=== PATIENT | female | born 1960 | race Caucasian/White ===

== ENCOUNTER 2022-10-08 13:08 | Inpatient (IN) | payer OTHER ==
[~2022-10-08] VITALS: Ht 160 cm; Wt 87.5 kg
[~2022-10-08 13:08] MED LIST: ATOR10TA PO; CARV3.12 PO; CITA20TA19 PO; LORA1TAB PO; NITR0.4T51 SL; PANT-47 PO; RANI-648 PO
[2022-10-08 13:47] LABS: BASOPHILS % (AUTO) 0.4 % (0-1); EOSINOPHILS # (AUTO) 0.2 X10'3 (0-0.9); EOSINOPHILS % (AUTO) 2.1 % (0-6); HEMATOCRIT 41.1 % (35.0-45.0); HEMOGLOBIN 13.6 g/dl (12.0-16.0); LYMPHOCYTES % (AUTO) 25.8 % (21-51); MEAN CORPUSCULAR HEMOGLOBIN 30.3 PG (27.0-31.0); MEAN CORPUSCULAR HGB CONC 33.1 g/dL (33.0-36.5); MEAN CORPUSCULAR VOLUME 91.3 FL (78-98); MEAN PLATELET VOLUME 7.9 FL (7.4-10.4); MONOCYTES # (AUTO) 0.6 X10'3 (0-0.9); MONOCYTES % (AUTO) 7.8 % (2-12); NEUTROPHILS % (AUTO) 63.9 % (42-75); PLATELET COUNT 286 X10'3 (140-440); RED CELL DISTRIBUTION WIDTH 13.9 % (11.5-14.5); WHITE BLOOD COUNT 7.9 X10'3 (4.5-11.0)
[2022-10-08 14:05] LABS: ALANINE AMINOTRANSFERASE 33 U/L (12-78); ALBUMIN 4.1 G/DL (3.4-5.0); ALBUMIN/GLOBULIN RATIO 1.4 (1.1-1.5); ALKALINE PHOSPHATASE 81 IU/L (46-116); ANION GAP 13 (8-16); ASPARTATE AMINO TRANSFERASE 24 U/L (10-37); BILIRUBIN,TOTAL 0.2 MG/DL (0.1-1.0); BLOOD UREA NITROGEN 24 MG/DL (7-18); BUN/CREATININE RATIO 34.8 (10.0-20.0); CHLORIDE 104 MMOL/L (99-107); CREATININE 0.69 MG/DL (0.40-0.90); GLUCOSE 127 MG/DL (70-104); SODIUM 139 MMOL/L (135-145); TOTAL CARBON DIOXIDE 21.7 MMOL/L (24-32); TOTAL PROTEIN 7.1 G/DL (6.4-8.2); eGFR 86 ML/MIN
[2022-10-08 14:15] LABS: MAGNESIUM 1.7 MG/DL (1.5-2.4)
[2022-10-08] MEDS ORDERED: aspirin 81mg tab.chew PO ONE (15:20)
[2022-10-08] MEDS ORDERED: famotidine 20mg tablet PO ONE (15:35)
[2022-10-08] MEDS ORDERED: heparin 10,000 units/1 ML INJ IV ONE (15:40)
--- NOTE | 2022-10-08 15:59 | NUR ---
awating for PTT result to start the heparin
[2022-10-08] MEDS ORDERED: magnesium hydroxide 30ml (MOM) UD suspension PO PRN (16:05)
[2022-10-08] MEDS ORDERED: PERFLUTREN PROTEIN-A MICROSPHR (Optison) 0.22 MG/ML 3ML VIAL IV ONE (16:05)
[2022-10-08] MEDS ORDERED: mag hydrox/Alum hydrox/simeth 30ml oral suspension PO PRN (16:05)
[2022-10-08] MEDS ORDERED: magnesium Cl slow-release 64mg tablet PO PRN (16:05)
[2022-10-08] MEDS ORDERED: potassium Cl 20 mEq SR tablet PO PRN ×2 (16:05)
[2022-10-08] MEDS ORDERED: potassium Cl 40MEQ/1/2NS 520ml 520 ML IV PRN (16:05)
[2022-10-08] MEDS ORDERED: magnesium 4gm in 100ml NS 100 ML IV PRN (16:05)
[2022-10-08] MEDS ORDERED: ondansetron/PF 4mg/2ml inj IV PRN (16:05)
[2022-10-08] MEDS: normal saline 1000ml 1,000 ML IV SCH (16:05)
[2022-10-08] MEDS ORDERED: magnesium 2GM in 50ml NS 50 ML IV PRN (16:05)
[2022-10-08] MEDS ORDERED: morphine 2 MG/ML inj. syringe IV PRN ×2 (16:05)
[2022-10-08 16:26] LABS: APTT 27 SECONDS (22-32)
[2022-10-08] MEDS ORDERED: LORA-269 PO (16:32)
[2022-10-08] MEDS ORDERED: METF-1203 PO (16:32)
[2022-10-08] MEDS ORDERED: CITA20TA26 PO (16:32)
[2022-10-08] MEDS ORDERED: LOSA50TA64 PO (16:32)
[2022-10-08] MEDS ORDERED: PANT40TA54 PO (16:32)
[2022-10-08] MEDS ORDERED: EZET10TA48 PO (16:32)
[2022-10-08] MEDS ORDERED: ALBU6.7H14 IH (16:32)
[2022-10-08] MEDS: heparin 25,000 UNIT/250ml bag 250 ML IV PRN (17:05)
[2022-10-08] MEDS ORDERED: albuterol 2.5 MG/3 ML nebule NEB PRN (17:10)
[2022-10-08] MEDS: K and/or MAG REPLACEMENT MC SCH (19:59)
[2022-10-08] MEDS: pantoprazole 40mg Tablet.DR PO SCH (20:10)
[2022-10-08] MEDS: metoprolol tartrate 50mg tablet PO SCH (20:10)
[2022-10-08] MEDS: docusate sod 100mg capsule PO SCH (20:11)
[2022-10-08 23:00] VITALS: BP 143/61
[2022-10-09] VITALS (8 sets, daily range): BP systolic 101–149; BP diastolic 41–91
--- NOTE | 2022-10-09 04:15 | NUR ---
Spoke to Dr. Martinez on the phone regarding patient complaining of "4/10 chest pain/tightness that radiates to her back." EKG states "normal ECG, Sinus Rhythm." Vital signs stable at HR 75, BP 126/74, SpO2 95% and RR 18. New troponin ordered and sent. aware- okay to give prn morphine for pain and no new orders at this time.
[2022-10-09 04:24] LABS: BASOPHILS % (AUTO) 0.2 % (0-1); EOSINOPHILS # (AUTO) 0.2 X10'3 (0-0.9); HEMATOCRIT 37.6 % (35.0-45.0); HEMOGLOBIN 12.6 g/dl (12.0-16.0); LYMPHOCYTES # (AUTO) 3.1 X10'3 (1.1-4.8); LYMPHOCYTES % (AUTO) 35.3 % (21-51); MEAN CORPUSCULAR HEMOGLOBIN 30.5 PG (27.0-31.0); MEAN CORPUSCULAR HGB CONC 33.5 g/dL (33.0-36.5); MEAN PLATELET VOLUME 7.8 FL (7.4-10.4); MONOCYTES % (AUTO) 11.4 % (2-12); NEUTROPHILS # (AUTO) 4.5 X10'3 (1.8-7.7); NEUTROPHILS % (AUTO) 51.1 % (42-75); PLATELET COUNT 237 X10'3 (140-440); RED BLOOD COUNT 4.13 X10'6 (4.20-5.60); RED CELL DISTRIBUTION WIDTH 13.8 % (11.5-14.5); WHITE BLOOD COUNT 8.8 X10'3 (4.5-11.0)
[2022-10-09 04:45] LABS: ALBUMIN 3.4 G/DL (3.4-5.0); ANION GAP 8 (8-16); BLOOD UREA NITROGEN 18 MG/DL (7-18); BUN/CREATININE RATIO 25.4 (10.0-20.0); CALCIUM 8.5 MG/DL (8.5-10.1); CHLORIDE 108 MMOL/L (99-107); CHOL/HDL RATIO 4.3 (0.00-4.99); CHOLESTEROL 184 MG/DL (0-200); CREATININE 0.71 MG/DL (0.40-0.90); GLUCOSE 101 MG/DL (70-104); HDL CHOLESTEROL 43 MG/DL (35-60); LDL CHOLESTEROL 111 MG/DL (50-100); MAGNESIUM 1.8 MG/DL (1.5-2.4); POTASSIUM 3.7 MMOL/L (3.5-5.1); SODIUM 140 MMOL/L (135-145); TOTAL CARBON DIOXIDE 23.6 MMOL/L (24-32); TRIGLYCERIDES 156 MG/DL (20-135); eGFR 83 ML/MIN
--- NOTE | 2022-10-09 05:06 | NUR ---
DR. Martinez paged "[id number] Yasmin Mccloud- troponin came back at 1,833. Previous one was 226. Call Edith FOFANA @ ." Waiting for MD to call back.
--- NOTE | 2022-10-09 05:37 | NUR ---
Spoke to Dr. Martinez via telephone regarding troponin of 183. Previous troponin 226. MD aware and no new orders at this time.
[2022-10-09] MEDS: heparin 10,000 units/1 ML INJ IV PRN ×2 (07:12→21:19)
[2022-10-09] MEDS: normal saline 1000ml 1,000 ML IV SCH ×3 (07:16→22:05)
[2022-10-09] MEDS: docusate sod 100mg capsule PO SCH ×2 (07:54→19:18)
[2022-10-09] MEDS: aspirin 81mg, enteric-coated 1 TAB TABLET.DR PO SCH (07:55)
[2022-10-09] MEDS: citalopram 20mg tablet PO SCH (07:55)
[2022-10-09] MEDS: atorvastatin 20mg tablet PO SCH (07:55)
[2022-10-09] MEDS: losartan 50mg tablet PO SCH (07:56)
[2022-10-09] MEDS: ezetimibe 10mg tablet PO SCH (07:56)
[2022-10-09] MEDS: pantoprazole 40mg Tablet.DR PO SCH ×2 (07:56→19:17)
[2022-10-09] MEDS: K and/or MAG REPLACEMENT MC SCH ×2 (08:00→19:14)
[2022-10-09] MEDS: metoprolol tartrate 50mg tablet PO SCH ×2 (08:31→19:17)
[2022-10-09] MEDS: LORazepam 1 MG tablet PO PRN ×2 (08:32→19:16)
--- NOTE | 2022-10-09 13:05 | NUR ---
DM Consult: Pt A1C 7.0% hx DM takes metformin BID currently on heart healthy diet w/ Glu WNL this admit per EMR. Written DM diet ed w/ RD contact information placed in pt chart. Addendum: 10/09/22 at [address] Amended: Links added.
[2022-10-09] MEDS ORDERED: verapamil 2.5 mg/ml inj IV ONE (14:01)
[2022-10-09] MEDS ORDERED: nitroGLYCERIN-Tridil 50MG/D5W 250 ML IV ONE (14:01)
[2022-10-09] MEDS ORDERED: iohexol 350MG/ML 100ml bottle IV ONE ×2 (14:02→14:54)
[2022-10-09] MEDS ORDERED: midazolam 1 mg/ML 2ml injection ONE (14:02)
[2022-10-09] MEDS ORDERED: fentaNYL/PF 50MCG/1 ML 2ML syringe ONE (14:02)
[2022-10-09] MEDS ORDERED: LIDOcaine 1% (10mg/ml) 2ml vial ONE (14:02)
[2022-10-09] MEDS ORDERED: heparin 1,000unit/ml 10ml vial 10 ML ONE (14:02)
[2022-10-09] MEDS ORDERED: LIDOcaine 1% 30ml preserv. free vial ONE (14:49)
[2022-10-09] MEDS: heparin 25,000 UNIT/250ml bag 250 ML IV PRN (21:18)
[2022-10-10 02:00] VITALS: BP 120/66
[2022-10-10 04:17] LABS: BASOPHILS % (AUTO) 0.3 % (0-1); EOSINOPHILS # (AUTO) 0.1 X10'3 (0-0.9); EOSINOPHILS % (AUTO) 1.7 % (0-6); HEMOGLOBIN 11.9 g/dl (12.0-16.0); LYMPHOCYTES # (AUTO) 2.5 X10'3 (1.1-4.8); LYMPHOCYTES % (AUTO) 29.3 % (21-51); MEAN CORPUSCULAR HEMOGLOBIN 30.8 PG (27.0-31.0); MEAN CORPUSCULAR HGB CONC 33.9 g/dL (33.0-36.5); MEAN CORPUSCULAR VOLUME 90.8 FL (78-98); MEAN PLATELET VOLUME 7.6 FL (7.4-10.4); MONOCYTES # (AUTO) 0.8 X10'3 (0-0.9); MONOCYTES % (AUTO) 9.1 % (2-12); NEUTROPHILS % (AUTO) 59.6 % (42-75); PLATELET COUNT 213 X10'3 (140-440); RED BLOOD COUNT 3.86 X10'6 (4.20-5.60); RED CELL DISTRIBUTION WIDTH 13.7 % (11.5-14.5); WHITE BLOOD COUNT 8.4 X10'3 (4.5-11.0)
[2022-10-10 04:23] LABS: ALBUMIN 3.2 G/DL (3.4-5.0); ANION GAP 10 (8-16); BLOOD UREA NITROGEN 11 MG/DL (7-18); BUN/CREATININE RATIO 17.7 (10.0-20.0); CALCIUM 8.3 MG/DL (8.5-10.1); CHLORIDE 110 MMOL/L (99-107); CREATININE 0.62 MG/DL (0.40-0.90); GLUCOSE 101 MG/DL (70-104); MAGNESIUM 1.8 MG/DL (1.5-2.4); POTASSIUM 3.6 MMOL/L (3.5-5.1); SODIUM 142 MMOL/L (135-145); TOTAL CARBON DIOXIDE 22.5 MMOL/L (24-32); eGFR > 90 ML/MIN
[2022-10-10 07:00] VITALS: BP 128/76
--- NOTE | 2022-10-10 07:48 | NUR ---
PAGER ID: [phone] MESSAGE: Rogers [id number], Pt has an NPO after midnight order but nothing scheduled that I see. Can the pt eat breakfast or not? Addi [id number]
[2022-10-10] MEDS: atorvastatin 20mg tablet PO SCH (08:00)
[2022-10-10] MEDS: docusate sod 100mg capsule PO SCH ×2 (08:00→20:00)
[2022-10-10] MEDS: K and/or MAG REPLACEMENT MC SCH ×2 (08:00→20:00)
[2022-10-10] MEDS: normal saline 1000ml 1,000 ML IV SCH ×2 (08:05→20:34)
[2022-10-10] MEDS: metoprolol tartrate 50mg tablet PO SCH ×2 (08:15→20:27)
[2022-10-10] MEDS: pantoprazole 40mg Tablet.DR PO SCH ×2 (08:16→20:23)
[2022-10-10] MEDS: ezetimibe 10mg tablet PO SCH (08:16)
[2022-10-10] MEDS: aspirin 81mg, enteric-coated 1 TAB TABLET.DR PO SCH (08:18)
[2022-10-10] MEDS: losartan 50mg tablet PO SCH (08:18)
[2022-10-10] MEDS: citalopram 20mg tablet PO SCH (08:19)
[2022-10-10] MEDS ORDERED: MESSAGE TO PHARMACY IJ ONE (09:05)
[2022-10-10 11:00] VITALS: BP 134/64
[2022-10-10 13:23] LABS: ABG BASE EXCESS -1.4 mmol/L (-2.0-2.0); ABG HCO3 22.3 mmol/L (22.0-26.0); ABG OXYGEN SATURATION 95.3 % (94-97); ABG PCO2 (T) 34.2 mmHg (32.0-45.0); ABG PO2 (T) 75.5 mmHg (75.0-100.0); ALLEN'S TEST POSITIVE; FCOHb 0.3 % (0.0-3.9); FMetHb 0.2 % (0.0-1.5); FO2Hb 94.8 % (94-97); TOTAL HEMOGLOBIN 13.1 G/dl (12.0-16.0)
[2022-10-10] MEDS: heparin 10,000 units/1 ML INJ IV PRN (16:14)
--- NOTE | 2022-10-10 16:26 | NUR ---
Pt and daughter stated to me that pt usually clears anesthesia slowly from their body after procedures. It can take a few hours before the pt fully comes out from the influence.
[2022-10-10 18:00] VITALS: BP 139/55
[2022-10-10 18:58] LABS: CLARITY,URINE CLEAR (Clear); COLOR,URINE STRAW (Yellow); GLUCOSE, URINE NEGATIVE (Neg); KETONES,URINE NEGATIVE (Neg); LEUKOCYTE ESTERASE ,URINE NEGATIVE (Neg); NITRITES, URINE NEGATIVE (Neg); OCCULT BLOOD,URINE SMALL (Neg); PH,URINE 5.5 (4.8-8.0); PROTEIN,URINE NEGATIVE (Neg); UROBILINOGEN,URINE 0.2 E.U/dL (0.2-1.0)
[2022-10-10 19:06] LABS: UA COLLECTION TYPE VOIDED
[2022-10-10 19:10] LABS: BACTERIA,URINE NONE SEEN /HPF (Neg); SQUAMOUS EPITHELIAL CELL,UR FEW /LPF (FEW); WBC,URINE 0-4 /HPF (0-4)
[2022-10-10 20:27] VITALS: BP 159/67
[2022-10-10 22:00] VITALS: BP 133/62
[2022-10-11] MEDS: LORazepam 1 MG tablet PO PRN ×2 (00:45→20:10)
[2022-10-11 02:00] VITALS: BP 122/67
[2022-10-11] MEDS: heparin 25,000 UNIT/250ml bag 250 ML IV PRN (02:37)
[2022-10-11] MEDS: normal saline 1000ml 1,000 ML IV SCH ×3 (04:05→18:54)
--- NOTE | 2022-10-11 05:43 | NUR ---
Student documentation: I have reviewed and agree with all interventions, assessments performed and documented by Justine. assessments discussed and edited to match my assessment.
[2022-10-11 05:51] LABS: BASOPHILS % (AUTO) 0.3 % (0-1); EOSINOPHILS # (AUTO) 0.1 X10'3 (0-0.9); EOSINOPHILS % (AUTO) 1.6 % (0-6); HEMATOCRIT 33.4 % (35.0-45.0); HEMOGLOBIN 11.4 g/dl (12.0-16.0); LYMPHOCYTES # (AUTO) 1.8 X10'3 (1.1-4.8); LYMPHOCYTES % (AUTO) 25.7 % (21-51); MEAN CORPUSCULAR HEMOGLOBIN 31.2 PG (27.0-31.0); MEAN CORPUSCULAR VOLUME 91.7 FL (78-98); MEAN PLATELET VOLUME 7.8 FL (7.4-10.4); MONOCYTES # (AUTO) 0.9 X10'3 (0-0.9); MONOCYTES % (AUTO) 12.3 % (2-12); NEUTROPHILS # (AUTO) 4.2 X10'3 (1.8-7.7); NEUTROPHILS % (AUTO) 60.1 % (42-75); PLATELET COUNT 182 X10'3 (140-440); RED BLOOD COUNT 3.64 X10'6 (4.20-5.60); RED CELL DISTRIBUTION WIDTH 13.1 % (11.5-14.5)
[2022-10-11 06:02] LABS: ALBUMIN 3.2 G/DL (3.4-5.0); ANION GAP 9 (8-16); BLOOD UREA NITROGEN 9 MG/DL (7-18); BUN/CREATININE RATIO 16.7 (10.0-20.0); CHLORIDE 110 MMOL/L (99-107); CREATININE 0.54 MG/DL (0.40-0.90); GLUCOSE 117 MG/DL (70-104); MAGNESIUM 1.8 MG/DL (1.5-2.4); POTASSIUM 3.5 MMOL/L (3.5-5.1); SODIUM 144 MMOL/L (135-145); TOTAL CARBON DIOXIDE 24.8 MMOL/L (24-32); eGFR > 90 ML/MIN
--- NOTE | 2022-10-11 06:14 | NUR ---
gave report to day shift RN Alberto and BRIGIDO paz
--- NOTE | 2022-10-11 06:15 | NUR ---
reported to days. noted pt resting w/o distress. may need to transfer down to PCU for pre-op. no time set for surgery yet. stated it may have to be saturday.
[2022-10-11 08:00] VITALS: BP 140/70
[2022-10-11] MEDS: K and/or MAG REPLACEMENT MC SCH ×2 (08:00→20:18)
[2022-10-11] MEDS: atorvastatin 20mg tablet PO SCH (08:00)
[2022-10-11] MEDS: citalopram 20mg tablet PO SCH (08:00)
[2022-10-11] MEDS: docusate sod 100mg capsule PO SCH ×2 (08:55→20:06)
[2022-10-11] MEDS: metoprolol tartrate 50mg tablet PO SCH ×2 (08:55→20:07)
[2022-10-11] MEDS: aspirin 81mg, enteric-coated 1 TAB TABLET.DR PO SCH (08:56)
[2022-10-11] MEDS: losartan 50mg tablet PO SCH (08:56)
[2022-10-11] MEDS: pantoprazole 40mg Tablet.DR PO SCH ×2 (08:56→20:06)
[2022-10-11] MEDS: ezetimibe 10mg tablet PO SCH (08:57)
[2022-10-11] MEDS: acetaminophen 325mg tablet PO PRN (10:39)
[2022-10-11 13:10] VITALS: BP 126/76
--- NOTE | 2022-10-11 16:39 | NUR ---
Pt moved to PCU for prep and care for planned CABG tomorrow morning. Pt taken down to PCU in wheelchair along with family. Care of pt was handed off to Wade FOFANA. Chart taken with pt and given to PCU desk.
[2022-10-11 19:22] VITALS: BP 117/56
[2022-10-11 22:35] VITALS: BP 118/59
[2022-10-12] MEDS: heparin 25,000 UNIT/250ml bag 250 ML IV PRN (01:06)
[2022-10-12] MEDS: heparin 10,000 units/1 ML INJ IV PRN (01:51)
[2022-10-12 03:18] VITALS: BP 106/58
[2022-10-12] MEDS: normal saline 1000ml 1,000 ML IV SCH ×2 (04:17→18:41)
[2022-10-12] MEDS ORDERED: acetaminophen 325mg tablet PO PRN (05:35)
[2022-10-12] MEDS: acetaminophen 325mg tablet PO PRN ×2 (05:51→19:20)
[2022-10-12] MEDS ORDERED: MESSAGE TO NURSING PO ONE ×5 (08:00→15:00)
[2022-10-12] MEDS: K and/or MAG REPLACEMENT MC SCH ×2 (08:00→19:09)
[2022-10-12] MEDS: losartan 50mg tablet PO SCH (08:57)
[2022-10-12] MEDS: atorvastatin 20mg tablet PO SCH (08:58)
[2022-10-12] MEDS: aspirin 81mg, enteric-coated 1 TAB TABLET.DR PO SCH (08:58)
[2022-10-12] MEDS: ezetimibe 10mg tablet PO SCH (08:58)
[2022-10-12] MEDS: docusate sod 100mg capsule PO SCH ×2 (08:58→19:45)
[2022-10-12] MEDS: metoprolol tartrate 50mg tablet PO SCH ×2 (08:58→19:19)
[2022-10-12] MEDS: citalopram 20mg tablet PO SCH (08:58)
[2022-10-12] MEDS: pantoprazole 40mg Tablet.DR PO SCH ×2 (08:58→19:20)
[2022-10-12 09:29] LABS: ALBUMIN 3.3 G/DL (3.4-5.0); ANION GAP 7 (8-16); BLOOD UREA NITROGEN 10 MG/DL (7-18); BUN/CREATININE RATIO 16.4 (10.0-20.0); CALCIUM 8.3 MG/DL (8.5-10.1); CHLORIDE 109 MMOL/L (99-107); CREATININE 0.61 MG/DL (0.40-0.90); GLUCOSE 110 MG/DL (70-104); MAGNESIUM 1.8 MG/DL (1.5-2.4); POTASSIUM 3.7 MMOL/L (3.5-5.1); SODIUM 144 MMOL/L (135-145); eGFR > 90 ML/MIN
[2022-10-12 09:54] LABS: BASOPHILS # (AUTO) 0.2 X10'3 (0-0.2); EOSINOPHILS # (AUTO) 0.1 X10'3 (0-0.9); EOSINOPHILS % (AUTO) 1.3 % (0-6); HEMATOCRIT 33.1 % (35.0-45.0); HEMOGLOBIN 11.2 g/dl (12.0-16.0); LYMPHOCYTES # (AUTO) 1.3 X10'3 (1.1-4.8); LYMPHOCYTES % (AUTO) 16.7 % (21-51); MEAN CORPUSCULAR HEMOGLOBIN 30.7 PG (27.0-31.0); MEAN CORPUSCULAR HGB CONC 33.9 g/dL (33.0-36.5); MEAN CORPUSCULAR VOLUME 90.7 FL (78-98); MEAN PLATELET VOLUME 8.6 FL (7.4-10.4); MONOCYTES # (AUTO) 0.7 X10'3 (0-0.9); MONOCYTES % (AUTO) 9.2 % (2-12); NEUTROPHILS # (AUTO) 5.4 X10'3 (1.8-7.7); NEUTROPHILS % (AUTO) 70.8 % (42-75); PLATELET COUNT 181 X10'3 (140-440); RED BLOOD COUNT 3.65 X10'6 (4.20-5.60); RED CELL DISTRIBUTION WIDTH 13.2 % (11.5-14.5); WHITE BLOOD COUNT 7.7 X10'3 (4.5-11.0)
[2022-10-12] MEDS ORDERED: ringers solution, lacted 1,000 ML IV ONE (15:05)
[2022-10-12] MEDS ORDERED: albuterol 2.5 MG/3 ML nebule NEB ONE ×2 (15:05)
[2022-10-12 15:19] VITALS: BP 99/61
[2022-10-12 18:35] VITALS: BP 138/68
[2022-10-12] MEDS: LORazepam 1 MG tablet PO PRN (19:19)
[2022-10-12 23:13] VITALS: BP 121/66
[2022-10-13] MEDS: heparin 25,000 UNIT/250ml bag 250 ML IV PRN (01:33)
[2022-10-13 02:48] VITALS: BP 125/69
[2022-10-13] MEDS: normal saline 1000ml 1,000 ML IV SCH ×2 (03:26→15:13)
[2022-10-13 06:47] LABS: BASOPHILS % (AUTO) 0.3 % (0-1); EOSINOPHILS # (AUTO) 0.1 X10'3 (0-0.9); EOSINOPHILS % (AUTO) 1.7 % (0-6); HEMATOCRIT 30.9 % (35.0-45.0); HEMOGLOBIN 10.5 g/dl (12.0-16.0); LYMPHOCYTES # (AUTO) 1.4 X10'3 (1.1-4.8); LYMPHOCYTES % (AUTO) 22.7 % (21-51); MEAN CORPUSCULAR HEMOGLOBIN 30.8 PG (27.0-31.0); MEAN CORPUSCULAR HGB CONC 33.9 g/dL (33.0-36.5); MEAN CORPUSCULAR VOLUME 90.8 FL (78-98); MEAN PLATELET VOLUME 8.5 FL (7.4-10.4); MONOCYTES # (AUTO) 0.8 X10'3 (0-0.9); MONOCYTES % (AUTO) 12.5 % (2-12); NEUTROPHILS % (AUTO) 62.8 % (42-75); PLATELET COUNT 141 X10'3 (140-440); RED CELL DISTRIBUTION WIDTH 13.4 % (11.5-14.5); WHITE BLOOD COUNT 6.3 X10'3 (4.5-11.0)
[2022-10-13 06:57] LABS: ALBUMIN 2.9 G/DL (3.4-5.0); ANION GAP 10 (8-16); BLOOD UREA NITROGEN 7 MG/DL (7-18); BUN/CREATININE RATIO 10.9 (10.0-20.0); CALCIUM 8.2 MG/DL (8.5-10.1); CHLORIDE 110 MMOL/L (99-107); CREATININE 0.64 MG/DL (0.40-0.90); GLUCOSE 102 MG/DL (70-104); POTASSIUM 3.7 MMOL/L (3.5-5.1); SODIUM 146 MMOL/L (135-145); TOTAL CARBON DIOXIDE 25.9 MMOL/L (24-32); eGFR > 90 ML/MIN
[2022-10-13 08:00] VITALS: BP 157/100
[2022-10-13] MEDS: losartan 50mg tablet PO SCH (08:00)
[2022-10-13] MEDS: K and/or MAG REPLACEMENT MC SCH ×2 (08:00→20:33)
[2022-10-13] MEDS: pantoprazole 40mg Tablet.DR PO SCH ×2 (08:00→20:43)
[2022-10-13] MEDS: ezetimibe 10mg tablet PO SCH (08:52)
[2022-10-13] MEDS: citalopram 20mg tablet PO SCH (08:52)
[2022-10-13] MEDS: docusate sod 100mg capsule PO SCH ×2 (08:53→20:00)
[2022-10-13] MEDS: atorvastatin 20mg tablet PO SCH (08:53)
[2022-10-13] MEDS: aspirin 81mg, enteric-coated 1 TAB TABLET.DR PO SCH (08:53)
[2022-10-13] MEDS: metoprolol tartrate 50mg tablet PO SCH ×2 (09:09→20:43)
--- NOTE | 2022-10-13 09:58 | NUR ---
Initial: Pt presented with c/o CP and admit for NSTEMI. Pt currently POD #4 s/p cardiac cath and pending CABG on Sunday 10/15 per EMR. Pt on a heart healthy CHO controlled diet with slightly fluctuating PO intake however overall eating well, documented with average 68% PO intake since admit though with average 73% PO intake of 8 most recent meals. Noted serum BG well controlled since admit and pt not on hyperglycemic protocol, recommend removing CHO controlled diet restriction to allow for additional kcal with meals. LBM 10/12 per I&O. No nutrition intervention implemented at this time. Will continue to follow and make recommendations as appropriate. Recommendations: 1) Continue heart healthy diet; consider discontinuing CHO controlled restriction for additional kcal given BG levels well controlled and not on hyperglycemic protocol 2) Routine bowel care 3) Weekly scaled weights Addendum: 10/13/22 at [address] Amended: Links added.
[2022-10-13] MEDS: heparin 10,000 units/1 ML INJ IV PRN (11:22)
[2022-10-13] MEDS: LORazepam 1 MG tablet PO PRN (11:33)
[2022-10-13] MEDS: acetaminophen 325mg tablet PO PRN ×2 (11:34→20:50)
[2022-10-13 15:00] VITALS: BP 148/80
--- NOTE | 2022-10-13 15:24 | NUR ---
Anxiety this morning is moderate with tearfulness. Family to visit and nursing has provided the ordered dose of ativan once with good results.
[2022-10-13 20:00] VITALS: BP 129/66
--- NOTE | 2022-10-14 | NUR ---
Pt. is awake alert oriented in good spirits able to talk about events leading to admission. Peripheral IV intact Heparin gtt infusing at 1300 u/hr. Pt. is ambulatory walked around the unit with spouse. Ambulatory to BR urine yellow clear. 2nd IV placed. 2230 Ptt 82 Heparin on hold for 60 min. Restarted at 1100 u/hr.
[2022-10-14] MEDS: heparin 25,000 UNIT/250ml bag 250 ML IV PRN ×2 (00:15→23:49)
[2022-10-14] MEDS: normal saline 1000ml 1,000 ML IV SCH ×3 (02:05→22:05)
[2022-10-14 03:03] VITALS: BP 133/65
[2022-10-14] MEDS ORDERED: famotidine 20mg tablet PO ONE (06:00)
[2022-10-14] MEDS ORDERED: LORazepam 2 mg/ml vial IV ONE (06:00)
[2022-10-14] MEDS: K and/or MAG REPLACEMENT MC SCH ×2 (08:00→20:00)
[2022-10-14] MEDS: docusate sod 100mg capsule PO SCH ×2 (08:00→20:00)
[2022-10-14] MEDS: pantoprazole 40mg Tablet.DR PO SCH ×2 (09:21→21:42)
[2022-10-14] MEDS: atorvastatin 20mg tablet PO SCH (09:21)
[2022-10-14] MEDS: aspirin 81mg, enteric-coated 1 TAB TABLET.DR PO SCH (09:21)
[2022-10-14] MEDS: metoprolol tartrate 50mg tablet PO SCH ×2 (09:22→20:00)
[2022-10-14] MEDS: ezetimibe 10mg tablet PO SCH (09:23)
[2022-10-14] MEDS: citalopram 20mg tablet PO SCH (09:23)
[2022-10-14] MEDS: losartan 50mg tablet PO SCH (09:23)
[2022-10-14] MEDS: LORazepam 1 MG tablet PO PRN ×2 (09:30→17:56)
[2022-10-14] MEDS: acetaminophen 325mg tablet PO PRN ×2 (09:31→23:51)
[2022-10-14] MEDS ORDERED: MESSAGE TO PHARMACY IJ ONE (09:55)
[2022-10-14] MEDS ORDERED: MESSAGE TO NURSING PO ONE (09:55)
[2022-10-14] MEDS ORDERED: dextrose 50%-water 50ml dispensing syringe IV PRN (09:55)
--- NOTE | 2022-10-14 17:00 | NUR ---
Shower and shampoo transferred to ICU rm 2006 Family is with Pt. and supportive and attentive.
--- NOTE | 2022-10-14 17:41 | NUR ---
Pt. arrived to 2006 at 1741. Hooked up to monitor. Medicated with PO Ativan for high anxiety. and daughter at bedside. Pt. eating dinner. Call light in reach.
--- NOTE | 2022-10-14 18:30 | NUR ---
Patient in room CICU 2006. I have received report from BRIGIDO Sy and had the opportunity to ask questions and assume patient care.
--- NOTE | 2022-10-14 18:50 | NUR ---
Called Jeane BURROWS for clarification on patient's heparin gtt. STORMY would like heparin gtt turned off at 0500 and turned back on if Dr. Gr decides not to go through with the surgery tomorrow morning. As for now we will prep patient as if she will be going to surgery at 0900.
[2022-10-14 19:00] VITALS: BP 142/72
[2022-10-14 20:00] VITALS: BP 140/76
[2022-10-14] MEDS: sod chloride 0.9% 10ml flush syringe IV SCH (20:00)
[2022-10-14] MEDS: metoprolol tartrate 12.5mg (1/2 tablet) PO SCH (20:00)
[2022-10-14 21:00] VITALS: BP 149/68
[2022-10-14 22:00] VITALS: BP 160/77
[2022-10-14 23:00] VITALS: BP 147/66
[2022-10-15] VITALS (32 sets, daily range): BP systolic 93–154; BP diastolic 46–89
[2022-10-15] MEDS ORDERED: MESSAGE TO NURSING PO ONE (01:00)
[2022-10-15 03:08] LABS: ALBUMIN 2.7 G/DL (3.4-5.0); ANION GAP 12 (8-16); BLOOD UREA NITROGEN 11 MG/DL (7-18); BUN/CREATININE RATIO 17.5 (10.0-20.0); CALCIUM 7.9 MG/DL (8.5-10.1); CHLORIDE 108 MMOL/L (99-107); CREATININE 0.63 MG/DL (0.40-0.90); GLUCOSE 107 MG/DL (70-104); POTASSIUM 3.1 MMOL/L (3.5-5.1); SODIUM 145 MMOL/L (135-145); TOTAL CARBON DIOXIDE 25.3 MMOL/L (24-32); eGFR > 90 ML/MIN
[2022-10-15 03:34] LABS: BASOPHILS % (AUTO) 0.4 % (0-1); EOSINOPHILS # (AUTO) 0.1 X10'3 (0-0.9); EOSINOPHILS % (AUTO) 1.6 % (0-6); HEMATOCRIT 27.9 % (35.0-45.0); HEMOGLOBIN 9.3 g/dl (12.0-16.0); LYMPHOCYTES # (AUTO) 1.5 X10'3 (1.1-4.8); LYMPHOCYTES % (AUTO) 23.3 % (21-51); MEAN CORPUSCULAR HEMOGLOBIN 30.2 PG (27.0-31.0); MEAN CORPUSCULAR HGB CONC 33.2 g/dL (33.0-36.5); MEAN CORPUSCULAR VOLUME 91.1 FL (78-98); MEAN PLATELET VOLUME 9.1 FL (7.4-10.4); MONOCYTES # (AUTO) 0.7 X10'3 (0-0.9); MONOCYTES % (AUTO) 11.2 % (2-12); NEUTROPHILS % (AUTO) 63.5 % (42-75); PLATELET COUNT 119 X10'3 (140-440); RED BLOOD COUNT 3.07 X10'6 (4.20-5.60); RED CELL DISTRIBUTION WIDTH 13.6 % (11.5-14.5); WHITE BLOOD COUNT 6.3 X10'3 (4.5-11.0)
[2022-10-15] MEDS: normal saline 1000ml 1,000 ML IV SCH (03:44)
[2022-10-15] MEDS ORDERED: calcium chloride 100 MG/1 ML inj IV ONE (04:00)
[2022-10-15] MEDS ORDERED: NORepinephrine bitart. inj. IV ONE (04:00)
[2022-10-15] MEDS ORDERED: aminocaproic acid 250 MG/1 ML inj. ONE (04:00)
[2022-10-15] MEDS ORDERED: mannitol 12.5gm/50mL VIAL IV ONE (04:00)
[2022-10-15] MEDS ORDERED: sodium bicarbonate (8.4%) 1 mEq/ml syringe ONE (04:00)
[2022-10-15] MEDS ORDERED: methylPREDNISolone sod. succ. 500mg inj ONE (04:00)
[2022-10-15] MEDS ORDERED: albumin (human) 25% 100 ML IV solution IV ONE (04:00)
[2022-10-15] MEDS ORDERED: heparin 10,000 units/1 ML INJ ONE (04:00)
[2022-10-15] MEDS ORDERED: MALTODEXTRIN/FRUCTOSE 0.68 KCAL/ML LIQUID 296ML BOTTLE PO ONE (05:00)
[2022-10-15] MEDS ORDERED: potassium Cl 40MEQ/270ML bag 270 ML IV PRN (05:15)
[2022-10-15] MEDS ORDERED: magnesium 2GM in 50ml NS 50 ML IV PRN ×3 (05:15→18:30)
[2022-10-15] MEDS ORDERED: potassium Cl 40MEQ/1/2NS 520ml 520 ML IV PRN ×2 (05:15→11:25)
[2022-10-15] MEDS ORDERED: magnesium 4gm in 100ml NS 100 ML IV PRN ×3 (05:15→18:30)
[2022-10-15] MEDS ORDERED: cefazolin/dext.iso 2gm/50ml 100 ML IV ONE (05:30)
[2022-10-15] MEDS ORDERED: insulin glargine (Lantus) pen - multi-dose SQ PRN ×2 (05:30→11:25)
[2022-10-15] MEDS ORDERED: gabapentin 400mg capsule PO ONE ×2 (05:30→07:45)
[2022-10-15] MEDS: ringers solution, lacted 1,000 ML IV SCH (05:40)
--- NOTE | 2022-10-15 06:13 | NUR ---
Problems reprioritized. Patient report given, questions answered & plan of care reviewed with BRIGIDO Sy.
[2022-10-15] MEDS ORDERED: epiNEPHrine 1 mg/ml inj ONE (07:24)
[2022-10-15] MEDS ORDERED: ceFAZolin 1000mg inj ONE (07:25)
[2022-10-15] MEDS ORDERED: BUPIVAcaine/PF 5 mg/ml 10ml ONE ×2 (07:39→09:29)
[2022-10-15] MEDS ORDERED: famotidine 20mg tablet PO ONE (07:40)
[2022-10-15] MEDS ORDERED: LORazepam 2 mg/ml vial IV ONE (07:45)
[2022-10-15] MEDS: metoprolol tartrate 12.5mg (1/2 tablet) PO SCH ×2 (07:54→19:19)
[2022-10-15] MEDS: mupirocin 2% nasal ointment 1gm UD NS SCH ×3 (07:56→19:19)
[2022-10-15] MEDS: K and/or MAG REPLACEMENT MC SCH ×2 (08:00→19:20)
[2022-10-15] MEDS: aspirin 81mg, enteric-coated 1 TAB TABLET.DR PO SCH (08:00)
[2022-10-15] MEDS: docusate sod 100mg capsule PO SCH ×2 (08:00→19:19)
[2022-10-15] MEDS: ezetimibe 10mg tablet PO SCH (08:00)
[2022-10-15] MEDS: pantoprazole 40mg Tablet.DR PO SCH (08:00)
[2022-10-15] MEDS: citalopram 20mg tablet PO SCH (08:00)
[2022-10-15] MEDS: losartan 50mg tablet PO SCH (08:00)
[2022-10-15] MEDS: metoprolol tartrate 50mg tablet PO SCH (08:00)
[2022-10-15] MEDS: atorvastatin 20mg tablet PO SCH (08:00)
[2022-10-15] MEDS: sod chloride 0.9% 10ml flush syringe IV SCH ×2 (08:04→19:20)
--- NOTE | 2022-10-15 08:26 | NUR ---
Pt. to [facility] at 0817. Family at bedside when Dr. Gr spoke with pt.
[2022-10-15] MEDS ORDERED: nitroGLYCERIN in D5W 50mg/250ml (Tridil) infusion IV ONE (08:28)
[2022-10-15] MEDS ORDERED: niCARDipine in NS 40mg/200ml (0.2mg/ml) IVPB IV ONE (08:28)
[2022-10-15] MEDS ORDERED: isoflurane 100ml inhalation liquid IH ONE (08:28)
[2022-10-15] MEDS ORDERED: DOBUTamine/D5W 500mg/250ml premix IV ONE (08:28)
[2022-10-15] MEDS ORDERED: LORazepam 2 mg/ml vial ONE (08:36)
[2022-10-15] MEDS ORDERED: SUfentanil 50mcg/ml 1ml amp IV ONE (08:40)
[2022-10-15 09:12] LABS: ABG BASE EXCESS 0.4 mmol/L (-2.0-2.0); ABG HCO3 24.5 mmol/L (22.0-26.0); ABG OXYGEN SATURATION 99.6 % (94-97); ABG PO2 358.1 mmHg (75.0-100.0); CL (ABG) 108 mmol/L (99-107); FCOHb 0.3 % (0.0-3.9); FMetHb 0.3 % (0.0-1.5); GLUCOSE (ABG) 93 mg/dl (70-104); K (ABG) 3.5 mmol/L (3.5-5.1)
[2022-10-15 09:19] LABS: ACT @ 1.70 U 275 SEC (193-297); ACT @ 2.84 U 368 SEC (260-420); BASELINE ACT 142 SEC (101-148); PATIENT WEIGHT 86.0k KG
[2022-10-15] MEDS ORDERED: propofol inj 20 ML IV ONE (09:29)
[2022-10-15] MEDS ORDERED: rocuronium 10mg/ml inj IV ONE (09:30)
[2022-10-15] MEDS ORDERED: ePHEDrine 50MG/ML INJ. ONE (09:30)
[2022-10-15 09:59] LABS: ABG BASE EXCESS -4.5 mmol/L (-2.0-2.0); ABG HCO3 20.9 mmol/L (22.0-26.0); ABG OXYGEN SATURATION 97.7 % (94-97); ABG PCO2 39.4 mmHg (32.0-45.0); ABG PO2 115.5 mmHg (75.0-100.0); CL (ABG) 106 mmol/L (99-107); FCOHb 0.3 % (0.0-3.9); FMetHb 0.3 % (0.0-1.5); FO2Hb 97.1 % (94-97); GLUCOSE (ABG) 115 mg/dl (70-104); K (ABG) 3.5 mmol/L (3.5-5.1); TOTAL HEMOGLOBIN 9.1 G/dl (12.0-16.0)
[2022-10-15 10:10] LABS: ABG BASE EXCESS VENOUS -1.6 mmol/L (-2.0 - 2.0); ABG HCO3 VENOUS 23.7 mmol/L (21.0-28.0); ABG PCO2 VENOUS 42.4 mmHg (38.0-51.0); ABG PO2 VENOUS 43.1 mmHg (25.0-35.0); CL (ABG) 103 mmol/L (99-107); FCOHb VENOUS 1.2 % (0.0- 3.9); FMetHb VENOUS 0.3 % (0.0 - 0.5); FO2Hb VENOUS 73.5 %; GLUCOSE (ABG) 102 mg/dl (70-104); IONIZED CA (ABG) 0.95 mmol/L (1.10-1.30); K (ABG) 3.4 mmol/L (3.5-5.1)
[2022-10-15 10:12] LABS: ABG BASE EXCESS -1.3 mmol/L (-2.0-2.0); ABG HCO3 23.5 mmol/L (22.0-26.0); ABG OXYGEN SATURATION 99.9 % (94-97); ABG PCO2 39.1 mmHg (32.0-45.0); ABG PO2 350.5 mmHg (75.0-100.0); CL (ABG) 104 mmol/L (99-107); FCOHb 1.6 % (0.0-3.9); FMetHb 0.3 % (0.0-1.5); GLUCOSE (ABG) 103 mg/dl (70-104); IONIZED CA (ABG) 0.98 mmol/L (1.10-1.30); K (ABG) 3.2 mmol/L (3.5-5.1)
[2022-10-15 10:19] LABS: ABG BASE EXCESS -1.5 mmol/L (-2.0-2.0); ABG HCO3 23.4 mmol/L (22.0-26.0); ABG PCO2 39.6 mmHg (32.0-45.0); ABG PO2 319.8 mmHg (75.0-100.0); CL (ABG) 106 mmol/L (99-107); FCOHb 1.4 % (0.0-3.9); FMetHb 0.3 % (0.0-1.5); FO2Hb 98.3 % (94-97); GLUCOSE (ABG) 106 mg/dl (70-104); IONIZED CA (ABG) 0.97 mmol/L (1.10-1.30); K (ABG) 3.5 mmol/L (3.5-5.1)
[2022-10-15 10:41] LABS: ABG BASE EXCESS -3.7 mmol/L (-2.0-2.0); ABG HCO3 21.9 mmol/L (22.0-26.0); ABG OXYGEN SATURATION 99.6 % (94-97); ABG PO2 299.6 mmHg (75.0-100.0); CL (ABG) 103 mmol/L (99-107); FCOHb 0.6 % (0.0-3.9); FMetHb 0.3 % (0.0-1.5); FO2Hb 98.7 % (94-97); GLUCOSE (ABG) 113 mg/dl (70-104); K (ABG) 3.6 mmol/L (3.5-5.1)
[2022-10-15 11:18] LABS: ABG BASE EXCESS -1.5 mmol/L (-2.0-2.0); ABG HCO3 21.8 mmol/L (22.0-26.0); ABG OXYGEN SATURATION 94.6 % (94-97); ABG PCO2 31.3 mmHg (32.0-45.0); ABG PO2 75.4 mmHg (75.0-100.0); CL (ABG) 106 mmol/L (99-107); FCOHb 0.4 % (0.0-3.9); FMetHb 0.3 % (0.0-1.5); FO2Hb 93.9 % (94-97); GLUCOSE (ABG) 112 mg/dl (70-104); IONIZED CA (ABG) 1.14 mmol/L (1.10-1.30); K (ABG) 3.4 mmol/L (3.5-5.1)
[2022-10-15] MEDS ORDERED: ipratropium/albuterol 3ml nebule IH PRN (11:20)
[2022-10-15 11:21] LABS: ACTIVATED CLOTTING TIME 135 SEC (101-148)
[2022-10-15] MEDS ORDERED: magnesium hydroxide 30ml (MOM) UD suspension PO PRN (11:25)
[2022-10-15] MEDS ORDERED: metoclopramide 5 mg/ml inj IV PRN (11:25)
[2022-10-15] MEDS ORDERED: potassium Cl 20 mEq SR tablet PO PRN (11:25)
[2022-10-15] MEDS ORDERED: sodium phosphate inj. 15 MMOL in dextrose 5%-water 250 ML IV PRN (11:25)
[2022-10-15] MEDS ORDERED: potassium Cl 40MEQ/270ML bag 250 ML IV PRN (11:25)
[2022-10-15] MEDS ORDERED: potassium CL 10mEq/100ml bag 100 ML IV PRN (11:25)
[2022-10-15] MEDS ORDERED: Neutra Phos packet PO PRN (11:25)
[2022-10-15] MEDS ORDERED: nitroGLYCERIN-Tridil 50MG/D5W 250 ML IV SCH (11:25)
[2022-10-15] MEDS ORDERED: sodium phosphate inj. 30 MMOL in dextrose 5%-water 250 ML IV PRN (11:25)
[2022-10-15] MEDS ORDERED: dextrose 50%-water 50ml dispensing syringe IV PRN (11:25)
[2022-10-15] MEDS ORDERED: acetaminophen 325mg tablet PO PRN ×2 (11:25)
[2022-10-15] MEDS ORDERED: niCARDipine-NS 40mg/200ml IVPB 200 ML IV PRN (11:25)
[2022-10-15] MEDS ORDERED: mineral oil 133ml enema RC PRN (11:25)
[2022-10-15] MEDS ORDERED: morphine 2 MG/ML inj. syringe IV PRN (11:25)
[2022-10-15] MEDS ORDERED: ondansetron/PF 4mg/2ml inj IV PRN (11:25)
[2022-10-15] MEDS ORDERED: Insulin Reg/NS 100units/100mL 100 ML IV SCH (11:25)
[2022-10-15] MEDS ORDERED: bisacodyl 10mg suppository rectal RC PRN (11:25)
[2022-10-15] MEDS ORDERED: HYDROcodone/acetaminophen 10/325mg tab PO PRN (11:25)
--- NOTE | 2022-10-15 11:48 | NUR ---
CABG Consult: Pt NPO to OR today for CABG per EMR; would benefit from high protein/heart healthy diet eds once appropriate post-op prior to discharge. Addendum: 10/15/22 at [address] Amended: Links added.
--- NOTE | 2022-10-15 11:50 | NUR ---
Received to room 2007, accompanied by MDs and surgical crew. Placed on ventilator, to cardiac rehabilitation specialist, arterial line and PA line pressure zeroed & monitored. Chest tubes to suction at 20 cm. Cantu cath to gravity drainage. Dressings are dry and intact. See assessment record. All vasoactive drugs are infusing via central line.
[2022-10-15 12:10] LABS: BASOPHILS % (AUTO) 0.5 % (0-1); EOSINOPHILS # (AUTO) 0.1 X10'3 (0-0.9); EOSINOPHILS % (AUTO) 0.8 % (0-6); HEMATOCRIT 29.2 % (35.0-45.0); HEMOGLOBIN 9.6 g/dl (12.0-16.0); LYMPHOCYTES # (AUTO) 0.6 X10'3 (1.1-4.8); MEAN CORPUSCULAR HEMOGLOBIN 30.2 PG (27.0-31.0); MEAN CORPUSCULAR HGB CONC 32.9 g/dL (33.0-36.5); MEAN CORPUSCULAR VOLUME 91.9 FL (78-98); MEAN PLATELET VOLUME 8.6 FL (7.4-10.4); MONOCYTES # (AUTO) 0.6 X10'3 (0-0.9); MONOCYTES % (AUTO) 7.8 % (2-12); NEUTROPHILS # (AUTO) 6.6 X10'3 (1.8-7.7); NEUTROPHILS % (AUTO) 83.9 % (42-75); PLATELET COUNT 89 X10'3 (140-440); RED BLOOD COUNT 3.18 X10'6 (4.20-5.60); RED CELL DISTRIBUTION WIDTH 13.4 % (11.5-14.5); WHITE BLOOD COUNT 7.8 X10'3 (4.5-11.0)
[2022-10-15 12:25] LABS: ABG BASE EXCESS -1.7 mmol/L (-2.0-2.0); ABG HCO3 23.3 mmol/L (22.0-26.0); ABG OXYGEN SATURATION 94.8 % (94-97); ABG PCO2 (T) 39.9 mmHg (32.0-45.0); FCOHb 0.3 % (0.0-3.9); FMetHb 0.4 % (0.0-1.5); FO2Hb 94.1 % (94-97); PATIENT TEMPERATURE 36.7; PEEP 5 cm H2O; RESPIRATORY RATE 12 b/min; TIDAL VOLUME 550 mL; TOTAL HEMOGLOBIN 10.6 G/dl (12.0-16.0)
[2022-10-15 12:25] LABS: APTT 27 SECONDS (22-32)
[2022-10-15 12:29] LABS: ALANINE AMINOTRANSFERASE 38 U/L (12-78); ALBUMIN 2.9 G/DL (3.4-5.0); ALBUMIN/GLOBULIN RATIO 1.2 (1.1-1.5); ALKALINE PHOSPHATASE 71 IU/L (46-116); ANION GAP 9 (8-16); ASPARTATE AMINO TRANSFERASE 25 U/L (10-37); BILIRUBIN,TOTAL 0.7 MG/DL (0.1-1.0); BLOOD UREA NITROGEN 7 MG/DL (7-18); BUN/CREATININE RATIO 14.9 (10.0-20.0); CALCIUM 8.1 MG/DL (8.5-10.1); CHLORIDE 109 MMOL/L (99-107); CREATININE 0.47 MG/DL (0.40-0.90); GLUCOSE 135 MG/DL (70-104); MAGNESIUM 1.6 MG/DL (1.5-2.4); PHOSPHORUS 3.9 MG/DL (2.3-4.5); POTASSIUM 3.7 MMOL/L (3.5-5.1); SODIUM 143 MMOL/L (135-145); TOTAL CARBON DIOXIDE 25.4 MMOL/L (24-32); TOTAL PROTEIN 5.3 G/DL (6.4-8.2); eGFR > 90 ML/MIN
[2022-10-15] MEDS: morphine 4 MG/ML inj SYRINge IV PRN ×2 (12:39→21:48)
[2022-10-15] MEDS: sodium chloride 0.45% 1,000 ML IV SCH (12:40)
[2022-10-15] MEDS: Insulin Reg/NS 100units/100mL 100 ML IV SCH (12:43)
[2022-10-15] MEDS: potassium Cl 20mEq/100mL bag 100 ML IV PRN ×5 (12:45→19:57)
--- NOTE | 2022-10-15 13:40 | NUR ---
Dtr. and spouse in to see pt. briefly.
[2022-10-15] MEDS: albumin (Human) 5% 250ml 250 ML IV PRN ×3 (14:32→22:58)
[2022-10-15] MEDS: ceFAZolin/D5W- 1GM premix 50 ML IV SCH (15:38)
--- NOTE | 2022-10-15 18:07 | NUR ---
Problems reprioritized. Patient report given, questions answered & plan of care reviewed with Feli FOFANA. Addendum: 10/15/22 at 1807 by Kerrie Montanez RN Amended: Links added.
[2022-10-15 18:11] LABS: BASOPHILS % (AUTO) 0.2 % (0-1); EOSINOPHILS % (AUTO) 0 % (0-6); HEMATOCRIT 28.1 % (35.0-45.0); HEMOGLOBIN 9.2 g/dl (12.0-16.0); LYMPHOCYTES # (AUTO) 0.3 X10'3 (1.1-4.8); LYMPHOCYTES % (AUTO) 2.8 % (21-51); MEAN CORPUSCULAR HGB CONC 32.8 g/dL (33.0-36.5); MEAN CORPUSCULAR VOLUME 91.4 FL (78-98); MEAN PLATELET VOLUME 8.6 FL (7.4-10.4); MONOCYTES # (AUTO) 0.6 X10'3 (0-0.9); NEUTROPHILS # (AUTO) 11.1 X10'3 (1.8-7.7); PLATELET COUNT 101 X10'3 (140-440); RED BLOOD COUNT 3.07 X10'6 (4.20-5.60); RED CELL DISTRIBUTION WIDTH 13.6 % (11.5-14.5); WHITE BLOOD COUNT 12.1 X10'3 (4.5-11.0)
--- NOTE | 2022-10-15 18:14 | NUR ---
Patient in room CICU 2006. I have received report from BRIGIDO Sy and had the opportunity to ask questions and assume patient care.
[2022-10-15 18:24] LABS: ALBUMIN 3.1 G/DL (3.4-5.0); ANION GAP 11 (8-16); BLOOD UREA NITROGEN 9 MG/DL (7-18); BUN/CREATININE RATIO 15.5 (10.0-20.0); CALCIUM 7.8 MG/DL (8.5-10.1); CHLORIDE 110 MMOL/L (99-107); CREATININE 0.58 MG/DL (0.40-0.90); GLUCOSE 141 MG/DL (70-104); MAGNESIUM 2.2 MG/DL (1.5-2.4); SODIUM 144 MMOL/L (135-145); TOTAL CARBON DIOXIDE 23.2 MMOL/L (24-32); eGFR > 90 ML/MIN
[2022-10-15] MEDS: LORazepam 1 MG tablet PO PRN (19:18)
[2022-10-15] MEDS: atorvastatin 10mg tablet PO SCH (19:19)
[2022-10-15] MEDS: sennosides/docusate sodium tablet PO SCH (19:19)
[2022-10-15] MEDS: vancomycin/NS 1 GM ADD-VANTAGE 250 ML IV SCH (19:20)
[2022-10-16] VITALS (36 sets, daily range): BP systolic 89–156; BP diastolic 46–89
[2022-10-16] MEDS: ceFAZolin/D5W- 1GM premix 50 ML IV SCH ×4 (00:03→23:54)
[2022-10-16 01:28] LABS: ABG HCO3 20.5 mmol/L (22.0-26.0); ABG OXYGEN SATURATION 88.6 % (94-97); ABG PCO2 (T) 36.4 mmHg (32.0-45.0); ABG PO2 (T) 63.2 mmHg (75.0-100.0); FCOHb 0.3 % (0.0-3.9); FMetHb 0.4 % (0.0-1.5); PATIENT TEMPERATURE 37.9; PEEP 5 cm H2O; TOTAL HEMOGLOBIN 9.4 G/dl (12.0-16.0)
[2022-10-16] MEDS: ringers solution, lacted 1,000 ML IV SCH ×2 (01:30→21:30)
--- NOTE | 2022-10-16 01:43 | NUR ---
Dr. Gr notified in patient's worsening oxygenation. Patient's Fio2 was at 60%. patient's sats began dropping after linen change, down to 86%, fio2 increased to 70% but sats continued to remain between 88 and 89%. ABG and Xray done. PO2 63, fio2 was increased to 80%. ordered peep to be increased to 10. Patient now sating 90%. Will continue to monitor. Addendum: 10/16/22 at 0222 by Feli Sanz RN MD was also asked for something for anxiety and stated that he will not order anything at this time.
[2022-10-16 02:35] LABS: BASOPHILS % (AUTO) 0.1 % (0-1); EOSINOPHILS % (AUTO) 0 % (0-6); HEMATOCRIT 24.9 % (35.0-45.0); HEMOGLOBIN 8.3 g/dl (12.0-16.0); LYMPHOCYTES # (AUTO) 0.5 X10'3 (1.1-4.8); MEAN CORPUSCULAR HEMOGLOBIN 30.3 PG (27.0-31.0); MEAN CORPUSCULAR HGB CONC 33.2 g/dL (33.0-36.5); MEAN CORPUSCULAR VOLUME 91.2 FL (78-98); MEAN PLATELET VOLUME 9.1 FL (7.4-10.4); MONOCYTES # (AUTO) 0.7 X10'3 (0-0.9); MONOCYTES % (AUTO) 5.4 % (2-12); NEUTROPHILS # (AUTO) 11.2 X10'3 (1.8-7.7); NEUTROPHILS % (AUTO) 90.5 % (42-75); PLATELET COUNT 89 X10'3 (140-440); RED BLOOD COUNT 2.73 X10'6 (4.20-5.60); RED CELL DISTRIBUTION WIDTH 13.8 % (11.5-14.5); WHITE BLOOD COUNT 12.4 X10'3 (4.5-11.0)
[2022-10-16 02:45] LABS: ALANINE AMINOTRANSFERASE 31 U/L (12-78); ALBUMIN 3.3 G/DL (3.4-5.0); ALBUMIN/GLOBULIN RATIO 1.4 (1.1-1.5); ALKALINE PHOSPHATASE 57 IU/L (46-116); ANION GAP 10 (8-16); ASPARTATE AMINO TRANSFERASE 24 U/L (10-37); BILIRUBIN,TOTAL 0.3 MG/DL (0.1-1.0); BLOOD UREA NITROGEN 12 MG/DL (7-18); BUN/CREATININE RATIO 17.4 (10.0-20.0); CALCIUM 7.9 MG/DL (8.5-10.1); CHLORIDE 110 MMOL/L (99-107); CREATININE 0.69 MG/DL (0.40-0.90); GLUCOSE 155 MG/DL (70-104); MAGNESIUM 2.6 MG/DL (1.5-2.4); PHOSPHORUS 4.3 MG/DL (2.3-4.5); POTASSIUM 4.2 MMOL/L (3.5-5.1); SODIUM 142 MMOL/L (135-145); TOTAL CARBON DIOXIDE 21.6 MMOL/L (24-32); TOTAL PROTEIN 5.7 G/DL (6.4-8.2); eGFR 86 ML/MIN
[2022-10-16] MEDS: potassium Cl 20mEq/100mL bag 100 ML IV PRN ×2 (03:17→04:30)
[2022-10-16] MEDS: morphine 4 MG/ML inj SYRINge IV PRN ×8 (05:11→22:37)
--- NOTE | 2022-10-16 06:17 | NUR ---
Problems reprioritized. Patient report given, questions answered & plan of care reviewed with BRIGIDO Braxton.
[2022-10-16] MEDS: losartan 50mg tablet PO SCH (07:24)
[2022-10-16 07:25] LABS: TOTAL HEMOGLOBIN 6.4 G/dl (12.0-16.0)
[2022-10-16] MEDS: citalopram 20mg tablet PO SCH (07:25)
[2022-10-16] MEDS: metoprolol tartrate 12.5mg (1/2 tablet) PO SCH ×2 (07:25→20:24)
[2022-10-16 07:29] LABS: TOTAL HEMOGLOBIN 6.4 G/dl (12.0-16.0)
[2022-10-16 07:30] LABS: TOTAL HEMOGLOBIN 6.6 G/dl (12.0-16.0)
[2022-10-16] MEDS: mupirocin 2% nasal ointment 1gm UD NS SCH ×2 (07:35→20:24)
[2022-10-16] MEDS: aspirin 81mg tab.chew PO SCH (07:35)
[2022-10-16] MEDS: ezetimibe 10mg tablet PO SCH (07:35)
[2022-10-16] MEDS: sod chloride 0.9% 10ml flush syringe IV SCH ×2 (08:00→20:12)
[2022-10-16] MEDS: sennosides/docusate sodium tablet PO SCH ×2 (08:00→20:24)
[2022-10-16] MEDS ORDERED: metoprolol tartrate 12.5mg (1/2 tablet) PO SCH (08:00)
[2022-10-16] MEDS: docusate sod 100mg capsule PO SCH ×2 (08:00→20:00)
[2022-10-16] MEDS: K and/or MAG REPLACEMENT MC SCH ×2 (08:00→20:00)
[2022-10-16] MEDS ORDERED: ipratropium 0.5 MG/2.5ML nebule IH SCH (08:15)
[2022-10-16] MEDS ORDERED: albuterol 2.5 MG/3 ML nebule NEB SCH (08:15)
[2022-10-16] MEDS ORDERED: dexmedetomidin/NS 400mcg/100ml 100 ML IV SCH (08:50)
[2022-10-16] MEDS: vancomycin/NS 1 GM ADD-VANTAGE 250 ML IV SCH ×2 (08:51→20:24)
[2022-10-16] MEDS: dexmedetomidin/NS 400mcg/100ml 100 ML IV SCH ×3 (09:19→22:42)
[2022-10-16] MEDS: LORazepam 1 MG tablet PO PRN ×2 (09:44→21:09)
[2022-10-16] MEDS: ipratropium/albuterol 3ml nebule NEB SCH ×4 (11:57→22:46)
[2022-10-16 12:16] LABS: ABG BASE EXCESS -1.9 mmol/L (-2.0-2.0); ABG HCO3 23.4 mmol/L (22.0-26.0); ABG PCO2 (T) 42.9 mmHg (32.0-45.0); ABG PO2 (T) 63.5 mmHg (75.0-100.0); FCOHb 0.3 % (0.0-3.9); FMetHb 0.4 % (0.0-1.5); FO2Hb 88.4 % (94-97); PATIENT TEMPERATURE 37.3; PEEP 10 cm H2O; RESPIRATORY RATE 6 b/min; TIDAL VOLUME 550 mL; TOTAL HEMOGLOBIN 9.5 G/dl (12.0-16.0)
[2022-10-16] MEDS: Insulin Reg/NS 100units/100mL 100 ML IV SCH (14:50)
--- NOTE | 2022-10-16 18:20 | NUR ---
Problems reprioritized. Patient report given, questions answered & plan of care reviewed with BRIGIDO Batres.
[2022-10-16] MEDS ORDERED: potassium Cl 40MEQ/270ML bag 250 ML IV ONE (18:40)
[2022-10-16] MEDS: atorvastatin 10mg tablet PO SCH (20:24)
[2022-10-16] MEDS ORDERED: propofol 1000mg/100ml bottle 100 ML IV ONE (23:06)
[2022-10-16] MEDS: propofol 1000mg/100ml bottle 100 ML IV SCH (23:28)
--- NOTE | 2022-10-16 23:30 | NUR ---
Pt has been highly anxious throughout the shift. She apparently has severe anxiety which she is medicated for at home. Despite multiple reminders that she is doing OK and does a lot better when she is calm she will quickly go from calm and obeying command to a RASS of +3. at Approx 2315 pt was trying to get OOB and pulling for ETT. She was maxed out on precedex as well as recieved multiple doses of morphine and her PO ativan via OGT. Dr. Gr notified that the pt is currently at danger of extubating herself or ruining her sternum. Orders for propofol. Pt was switched and hemodynamically and oxygenation [place] has been the best she has been all night.
[2022-10-17] VITALS (31 sets, daily range): BP systolic 83–158; BP diastolic 43–85
[2022-10-17] MEDS ORDERED: DEXTROSE 15 GM of carb/4 tabs (each vial/BOTTLE has 4 tablets) PO PRN ×2 (02:35)
[2022-10-17] MEDS ORDERED: insulin Lispro (HumaLOG) vial - multi-dose SQ SCH (02:35)
[2022-10-17] MEDS ORDERED: MESSAGE TO PHARMACY PO ONE (02:35)
[2022-10-17] MEDS ORDERED: dextrose 50%-water 50ml dispensing syringe IV PRN ×2 (02:35)
[2022-10-17] MEDS ORDERED: glucagon, human recombinant 1mg kit SUBCUT PRN (02:35)
[2022-10-17 02:45] LABS: BASOPHILS % (AUTO) 0.1 % (0-1); EOSINOPHILS % (AUTO) 0 % (0-6); LYMPHOCYTES # (AUTO) 0.7 X10'3 (1.1-4.8); LYMPHOCYTES % (AUTO) 5.1 % (21-51); MEAN CORPUSCULAR HEMOGLOBIN 30.8 PG (27.0-31.0); MEAN CORPUSCULAR HGB CONC 33.4 g/dL (33.0-36.5); MEAN CORPUSCULAR VOLUME 92.4 FL (78-98); MEAN PLATELET VOLUME 9.2 FL (7.4-10.4); MONOCYTES # (AUTO) 1.4 X10'3 (0-0.9); NEUTROPHILS % (AUTO) 84.8 % (42-75); PLATELET COUNT 96 X10'3 (140-440); RED CELL DISTRIBUTION WIDTH 13.8 % (11.5-14.5); WHITE BLOOD COUNT 14.1 X10'3 (4.5-11.0)
[2022-10-17 02:53] LABS: ALBUMIN 2.9 G/DL (3.4-5.0); ANION GAP 7 (8-16); BLOOD UREA NITROGEN 24 MG/DL (7-18); BUN/CREATININE RATIO 27.6 (10.0-20.0); CALCIUM 7.9 MG/DL (8.5-10.1); CHLORIDE 110 MMOL/L (99-107); CREATININE 0.87 MG/DL (0.40-0.90); GLUCOSE 176 MG/DL (70-104); MAGNESIUM 2.6 MG/DL (1.5-2.4); PHOSPHORUS 3.8 MG/DL (2.3-4.5); POTASSIUM 4.8 MMOL/L (3.5-5.1); SODIUM 141 MMOL/L (135-145); TOTAL CARBON DIOXIDE 24.3 MMOL/L (24-32); TRIGLYCERIDES 176 MG/DL (20-135); eGFR 66 ML/MIN
[2022-10-17] MEDS: ipratropium/albuterol 3ml nebule NEB SCH ×6 (03:21→22:03)
[2022-10-17 03:32] LABS: ABG BASE EXCESS -5.2 mmol/L (-2.0-2.0); ABG HCO3 19.3 mmol/L (22.0-26.0); ABG OXYGEN SATURATION 93.2 % (94-97); ABG PCO2 (T) 33.6 mmHg (32.0-45.0); ABG PO2 (T) 75.7 mmHg (75.0-100.0); FCOHb 0.3 % (0.0-3.9); FMetHb 0.5 % (0.0-1.5); FO2Hb 92.5 % (94-97); PATIENT TEMPERATURE 36.9; PEEP 10 cm H2O; RESPIRATORY RATE 6 b/min; TIDAL VOLUME 550 mL; TOTAL HEMOGLOBIN 8.9 G/dl (12.0-16.0)
[2022-10-17] MEDS ORDERED: albumin (Human) 5% 250ml 250 ML IV ONE (03:40)
--- NOTE | 2022-10-17 03:40 | NUR ---
Dr. Gr notifed that her SBP has trended down to 85-90, MAP 62-63. Good CI, good UO, PAD 17. Would like to give one albumin.
[2022-10-17] MEDS: propofol 1000mg/100ml bottle 100 ML IV SCH (04:30)
--- NOTE | 2022-10-17 06:17 | NUR ---
Patient in room CICU 2006. I have received report from Medardo Rae and had the opportunity to ask questions and assume patient care.
[2022-10-17] MEDS: morphine 4 MG/ML inj SYRINge IV PRN ×2 (06:54→08:13)
[2022-10-17] MEDS: pantoprazole 40mg Tablet.DR PO SCH (07:30)
[2022-10-17] MEDS: aspirin 81mg tab.chew PO SCH (07:41)
[2022-10-17] MEDS: ezetimibe 10mg tablet PO SCH (07:42)
[2022-10-17] MEDS: metoprolol tartrate 12.5mg (1/2 tablet) PO SCH ×2 (07:43→20:00)
[2022-10-17] MEDS: citalopram 20mg tablet PO SCH (07:43)
[2022-10-17] MEDS: losartan 50mg tablet PO SCH (07:43)
[2022-10-17] MEDS: sennosides/docusate sodium tablet PO SCH ×2 (07:49→20:47)
[2022-10-17] MEDS: sod chloride 0.9% 10ml flush syringe IV SCH ×2 (08:00→20:00)
[2022-10-17] MEDS: K and/or MAG REPLACEMENT MC SCH ×2 (08:00→20:00)
[2022-10-17] MEDS: docusate sod 100mg capsule PO SCH ×2 (08:00→20:47)
[2022-10-17] MEDS ORDERED: furosemide 40mg/4ml inj IV ONE (08:05)
[2022-10-17] MEDS ORDERED: LIDOcaine 1%/PF 5ML 10 MG/ML VIAL SQ STA (08:28)
[2022-10-17] MEDS ORDERED: LIDOcaine 1% (10mg/ml) 2ml vial ONE (08:29)
[2022-10-17] MEDS: mupirocin 2% nasal ointment 1gm UD NS SCH (09:14)
--- NOTE | 2022-10-17 09:45 | NUR ---
Removed swans cath per MD orders. Tip intact. Manual pressure held for 2 minutes, then dressing applied. Pt tolerated well. No complications at this time.
[2022-10-17] MEDS: sodium chloride 0.45% 1,000 ML IV SCH (11:25)
[2022-10-17 12:07] LABS: ABG BASE EXCESS -4.1 mmol/L (-2.0-2.0); ABG HCO3 20.8 mmol/L (22.0-26.0); ABG OXYGEN SATURATION 90.4 % (94-97); ABG PCO2 (T) 38.8 mmHg (32.0-45.0); ABG PO2 (T) 72.6 mmHg (75.0-100.0); FCOHb 0.3 % (0.0-3.9); FMetHb 0.4 % (0.0-1.5); FO2Hb 89.8 % (94-97); PEEP 5 cm H2O; TIDAL VOLUME 485 mL; TOTAL HEMOGLOBIN 9.5 G/dl (12.0-16.0)
--- NOTE | 2022-10-17 12:15 | NUR ---
Pt extubated, voice coarse, whisper
--- NOTE | 2022-10-17 15:01 | NUR ---
Art line DC per MD orders. Manual pressure held for 5 minutes. Cath tip intact. Dressing applied. CMS intact in left distal wrist. pt tolerated well. no complications noted.
--- NOTE | 2022-10-17 15:04 | NUR ---
contreras cath removed. ursula care completed. pt tolerated well.
--- NOTE | 2022-10-17 18:30 | NUR ---
Problems reprioritized. Patient report given, questions answered & plan of care reviewed with John RN.
--- NOTE | 2022-10-17 20:15 | NUR ---
Communication -Called Dr. Gr regarding pt requesting her home med for anxiety. Order received.
[2022-10-17] MEDS: dexmedetomidin/NS 400mcg/100ml 100 ML IV SCH (20:44)
[2022-10-17] MEDS: ringers solution, lacted 1,000 ML IV SCH (20:44)
[2022-10-17] MEDS: atorvastatin 10mg tablet PO SCH (20:45)
[2022-10-17] MEDS: acetaminophen 325mg tablet PO PRN (20:48)
[2022-10-17] MEDS ORDERED: insulin glargine (Lantus) pen - multi-dose SQ SCH (21:00)
[2022-10-17] MEDS: ALPRAZolam 0.25mg tablet PO PRN (21:33)
[2022-10-18] VITALS (17 sets, daily range): BP systolic 93–114; BP diastolic 43–68
[2022-10-18] MEDS: ipratropium/albuterol 3ml nebule NEB SCH ×6 (03:56→23:00)
--- NOTE | 2022-10-18 05:12 | NUR ---
Pt has reported that pain is well controlled. Able to get up to commode with minimal assistance.
[2022-10-18] MEDS: dexmedetomidin/NS 400mcg/100ml 100 ML IV SCH (05:43)
[2022-10-18 06:04] LABS: ALBUMIN 2.8 G/DL (3.4-5.0); ANION GAP 7 (8-16); BLOOD UREA NITROGEN 19 MG/DL (7-18); BUN/CREATININE RATIO 30.6 (10.0-20.0); CALCIUM 8.2 MG/DL (8.5-10.1); CHLORIDE 106 MMOL/L (99-107); CREATININE 0.62 MG/DL (0.40-0.90); GLUCOSE 138 MG/DL (70-104); MAGNESIUM 2.5 MG/DL (1.5-2.4); PHOSPHORUS 3.6 MG/DL (2.3-4.5); POTASSIUM 4.9 MMOL/L (3.5-5.1); SODIUM 140 MMOL/L (135-145); TOTAL CARBON DIOXIDE 26.9 MMOL/L (24-32); eGFR > 90 ML/MIN
[2022-10-18 06:08] LABS: BASOPHILS % (AUTO) 0 % (0-1); EOSINOPHILS % (AUTO) 0 % (0-6); HEMOGLOBIN 8.1 g/dl (12.0-16.0); LYMPHOCYTES # (AUTO) 0.9 X10'3 (1.1-4.8); LYMPHOCYTES % (AUTO) 7.2 % (21-51); MEAN CORPUSCULAR HEMOGLOBIN 29.9 PG (27.0-31.0); MEAN CORPUSCULAR HGB CONC 32.3 g/dL (33.0-36.5); MEAN CORPUSCULAR VOLUME 92.5 FL (78-98); MEAN PLATELET VOLUME 9.2 FL (7.4-10.4); MONOCYTES % (AUTO) 8.2 % (2-12); NEUTROPHILS # (AUTO) 10.6 X10'3 (1.8-7.7); NEUTROPHILS % (AUTO) 84.6 % (42-75); PLATELET COUNT 104 X10'3 (140-440); RED CELL DISTRIBUTION WIDTH 13.7 % (11.5-14.5); WHITE BLOOD COUNT 12.6 X10'3 (4.5-11.0)
[2022-10-18] MEDS: docusate sod 100mg capsule PO SCH ×2 (07:32→19:55)
[2022-10-18] MEDS: HYDROcodone/acetaminophen 10/325mg tab PO PRN ×2 (07:32→12:18)
[2022-10-18] MEDS: ezetimibe 10mg tablet PO SCH (07:33)
[2022-10-18] MEDS: sennosides/docusate sodium tablet PO SCH ×2 (07:33→19:55)
[2022-10-18] MEDS: citalopram 20mg tablet PO SCH (07:33)
[2022-10-18] MEDS: pantoprazole 40mg Tablet.DR PO SCH (07:34)
[2022-10-18] MEDS: aspirin 81mg tab.chew PO SCH (07:37)
[2022-10-18] MEDS ORDERED: potassium Cl 20 mEq SR tablet PO PRN ×2 (07:40)
[2022-10-18] MEDS ORDERED: potassium Cl 40MEQ/1/2NS 520ml 520 ML IV PRN (07:40)
[2022-10-18] MEDS ORDERED: magnesium 4gm in 100ml NS 100 ML IV PRN (07:40)
[2022-10-18] MEDS ORDERED: potassium Cl 40MEQ/270ML bag 250 ML IV PRN (07:40)
[2022-10-18] MEDS ORDERED: magnesium 2GM in 50ml NS 50 ML IV PRN (07:40)
[2022-10-18] MEDS ORDERED: potassium Cl 20mEq/100mL bag 100 ML IV PRN (07:40)
[2022-10-18] MEDS ORDERED: potassium CL 10mEq/100ml bag 100 ML IV PRN (07:40)
[2022-10-18] MEDS: losartan 50mg tablet PO SCH (08:00)
[2022-10-18] MEDS: metoprolol tartrate 12.5mg (1/2 tablet) PO SCH ×2 (08:00→20:00)
[2022-10-18] MEDS: magnesium Cl slow-release 64mg tablet PO SCH ×2 (08:00→19:55)
[2022-10-18] MEDS: sod chloride 0.9% 10ml flush syringe IV SCH ×2 (08:41→20:11)
--- NOTE | 2022-10-18 11:36 | NUR ---
CABG Consult: Pt extubated yesterday post-op day 3 s/p CABGx3 per EMR.would benefit from high protein/heart healthy diet eds once appropriate post-op prior to discharge. Addendum: 10/18/22 at [address] Amended: Links added. Addendum: 10/18/22 at [address] CABG Consult: Pt extubated yesterday post-op day 3 s/p CABGx3 per EMR.would benefit from high protein/heart healthy diet eds once appropriate post-op prior to discharge. PO 100% first NCS meal this AM per EMR. LBM 10/14 though now receiving routine colace and senna-s post-op. Will monitor for further PO acceptance and ONS needs post-op. Recommendations: 1) Continue NCS diet; carb control not indicated given serum Glu well controlled without glycemic protocol 2) Monitor further PO trends for ONS needs 3) Routine bowel care 4) Weekly scaled weights 5) CABG diet ed once appropriate post-op prior to discharge
[2022-10-18] MEDS: ALPRAZolam 0.25mg tablet PO PRN (19:55)
[2022-10-18] MEDS: atorvastatin 10mg tablet PO SCH (21:07)
[2022-10-19] MEDS: acetaminophen 325mg tablet PO PRN ×3 (01:20→20:56)
[2022-10-19 02:00] VITALS: BP 126/70
[2022-10-19] MEDS: ipratropium/albuterol 3ml nebule NEB SCH ×2 (03:00→07:09)
--- NOTE | 2022-10-19 06:44 | NUR ---
Agree with Ade FLORES's physical assessment except where I documented my findings.
[2022-10-19 07:40] LABS: BASOPHILS % (AUTO) 0.1 % (0-1); EOSINOPHILS % (AUTO) 0 % (0-6); HEMATOCRIT 27.5 % (35.0-45.0); HEMOGLOBIN 8.9 g/dl (12.0-16.0); LYMPHOCYTES # (AUTO) 1.3 X10'3 (1.1-4.8); LYMPHOCYTES % (AUTO) 9.6 % (21-51); MEAN CORPUSCULAR HEMOGLOBIN 29.8 PG (27.0-31.0); MEAN CORPUSCULAR HGB CONC 32.5 g/dL (33.0-36.5); MEAN CORPUSCULAR VOLUME 91.9 FL (78-98); MEAN PLATELET VOLUME 8.4 FL (7.4-10.4); MONOCYTES # (AUTO) 1.3 X10'3 (0-0.9); MONOCYTES % (AUTO) 9.3 % (2-12); NEUTROPHILS # (AUTO) 11.3 X10'3 (1.8-7.7); PLATELET COUNT 169 X10'3 (140-440); RED CELL DISTRIBUTION WIDTH 13.7 % (11.5-14.5)
[2022-10-19] MEDS: losartan 50mg tablet PO SCH (07:55)
[2022-10-19] MEDS: citalopram 20mg tablet PO SCH (07:55)
[2022-10-19] MEDS: docusate sod 100mg capsule PO SCH ×2 (07:56→20:00)
[2022-10-19] MEDS: magnesium Cl slow-release 64mg tablet PO SCH ×2 (07:56→20:55)
[2022-10-19] MEDS: pantoprazole 40mg Tablet.DR PO SCH (07:56)
[2022-10-19] MEDS: aspirin 81mg tab.chew PO SCH (07:56)
[2022-10-19] MEDS: ezetimibe 10mg tablet PO SCH (07:56)
[2022-10-19] MEDS: metoprolol tartrate 12.5mg (1/2 tablet) PO SCH ×2 (07:57→20:55)
[2022-10-19] MEDS: sennosides/docusate sodium tablet PO SCH ×2 (07:57→20:00)
[2022-10-19 08:02] LABS: ALBUMIN 2.8 G/DL (3.4-5.0); ANION GAP 8 (8-16); BLOOD UREA NITROGEN 17 MG/DL (7-18); BUN/CREATININE RATIO 29.3 (10.0-20.0); CALCIUM 8.4 MG/DL (8.5-10.1); CHLORIDE 105 MMOL/L (99-107); CREATININE 0.58 MG/DL (0.40-0.90); GLUCOSE 124 MG/DL (70-104); POTASSIUM 4.3 MMOL/L (3.5-5.1); SODIUM 140 MMOL/L (135-145); TOTAL CARBON DIOXIDE 26.9 MMOL/L (24-32); eGFR > 90 ML/MIN
[2022-10-19] MEDS: sod chloride 0.9% 10ml flush syringe IV SCH ×2 (08:07→20:56)
[2022-10-19] MEDS ORDERED: HYDR-3972 PO (09:19)
[2022-10-19] MEDS ORDERED: ASPI81TA53 PO (09:19)
[2022-10-19] MEDS ORDERED: ATOR10TA PO (09:19)
[2022-10-19] MEDS ORDERED: LOP12.5T PO (09:19)
[2022-10-19] MEDS ORDERED: furosemide 20 MG/2 ML vial IV ONE (10:35)
[2022-10-19 11:00] VITALS: BP 122/64
[2022-10-19 15:00] VITALS: BP 116/66
--- NOTE | 2022-10-19 15:22 | NUR ---
F/u: Attempted visit with pt at bedside for post CABG education however pt unavailable. Will f/u at another time. Addendum: 10/19/22 at [address] Amended: Links added.
[2022-10-19] MEDS: atorvastatin 10mg tablet PO SCH (20:55)
--- NOTE | 2022-10-19 21:00 | NUR ---
pt doesnt want blood sugar check
--- NOTE | 2022-10-20 03:13 | NUR ---
This nurse agrees with the PHOTOGRAPH DEVELOPER's physical assessment. Medications reviewed and monitored per RN.
[2022-10-20 07:00] VITALS: BP 110/60
[2022-10-20 07:18] LABS: ALBUMIN 2.7 G/DL (3.4-5.0); ANION GAP 8 (8-16); BLOOD UREA NITROGEN 15 MG/DL (7-18); BUN/CREATININE RATIO 23.4 (10.0-20.0); CALCIUM 8.4 MG/DL (8.5-10.1); CHLORIDE 104 MMOL/L (99-107); CREATININE 0.64 MG/DL (0.40-0.90); GLUCOSE 98 MG/DL (70-104); SODIUM 141 MMOL/L (135-145); TOTAL CARBON DIOXIDE 28.8 MMOL/L (24-32); eGFR > 90 ML/MIN
[2022-10-20 07:31] LABS: BASOPHILS % (AUTO) 0.2 % (0-1); EOSINOPHILS # (AUTO) 0.1 X10'3 (0-0.9); EOSINOPHILS % (AUTO) 0.5 % (0-6); HEMATOCRIT 28.9 % (35.0-45.0); HEMOGLOBIN 9.4 g/dl (12.0-16.0); LYMPHOCYTES # (AUTO) 2.7 X10'3 (1.1-4.8); LYMPHOCYTES % (AUTO) 24.3 % (21-51); MEAN CORPUSCULAR HEMOGLOBIN 29.8 PG (27.0-31.0); MEAN CORPUSCULAR HGB CONC 32.4 g/dL (33.0-36.5); MEAN CORPUSCULAR VOLUME 91.9 FL (78-98); MEAN PLATELET VOLUME 8.3 FL (7.4-10.4); MONOCYTES # (AUTO) 1.3 X10'3 (0-0.9); MONOCYTES % (AUTO) 11.4 % (2-12); NEUTROPHILS # (AUTO) 7.1 X10'3 (1.8-7.7); NEUTROPHILS % (AUTO) 63.6 % (42-75); PLATELET COUNT 249 X10'3 (140-440); RED BLOOD COUNT 3.15 X10'6 (4.20-5.60); RED CELL DISTRIBUTION WIDTH 13.5 % (11.5-14.5); WHITE BLOOD COUNT 11.2 X10'3 (4.5-11.0)
[2022-10-20] MEDS: docusate sod 100mg capsule PO SCH (08:00)
[2022-10-20] MEDS: sennosides/docusate sodium tablet PO SCH (08:08)
[2022-10-20] MEDS: pantoprazole 40mg Tablet.DR PO SCH (08:08)
[2022-10-20] MEDS: magnesium Cl slow-release 64mg tablet PO SCH (08:08)
[2022-10-20] MEDS: citalopram 20mg tablet PO SCH (08:08)
[2022-10-20] MEDS: aspirin 81mg tab.chew PO SCH (08:08)
[2022-10-20] MEDS: ezetimibe 10mg tablet PO SCH (08:08)
[2022-10-20 08:09] VITALS: BP_SYST 110
[2022-10-20] MEDS: metoprolol tartrate 12.5mg (1/2 tablet) PO SCH (08:09)
[2022-10-20] MEDS: losartan 50mg tablet PO SCH (08:09)
[2022-10-20] MEDS: acetaminophen 325mg tablet PO PRN (08:15)
[2022-10-20] MEDS: sod chloride 0.9% 10ml flush syringe IV SCH (08:16)
--- NOTE | 2022-10-20 11:11 | NUR ---
Pt stable to d/c home as per MD order. PIV d/c'd with cannula intact. Pt took all belongings and signed paperwork. Pt transferred off floor out main entrance and into family vehicle safely at approx 1100.
--- NOTE | 2022-10-20 14:34 | NUR ---
PHYSICIAN PRACTICE CONSULTANT documentation: I have reviewed and agree with all interventions, assessments performed and documented by JUDITH AVELAR LVN.
== END 2022-10-20 11:02 | disposition home health service (06) | DRG 233 ==
LOC: ER 13:09 → ED HOLD 16:07 → ORTHO 4S 22:55 → PCU 3S 10-11 16:51 → CICU 2S 10-14 18:02 → PCU 3S 10-18 14:27
PROVIDERS: ADMIT Family Medicine; ATTEND Family Medicine
PROC: 4A023N7 Measurement of Cardiac Sampling and Pressure, Left Heart, Percutaneous Approach (ICD-10-PCS; principal; 2022-10-09)
PROC: B2111ZZ Fluoroscopy of Multiple Coronary Arteries using Low Osmolar Contrast (ICD-10-PCS; 2022-10-09)
PROC: B41F1ZZ Fluoroscopy of Right Lower Extremity Arteries using Low Osmolar Contrast (ICD-10-PCS; 2022-10-09)
PROC: 02100Z9 Bypass Coronary Artery, One Artery from Left Internal Mammary, Open Approach (ICD-10-PCS; 2022-10-15)
PROC: 021109W Bypass Coronary Artery, Two Arteries from Aorta with Autologous Venous Tissue, Open Approach (ICD-10-PCS; 2022-10-15)
PROC: 06BQ4ZZ Excision of Left Saphenous Vein, Percutaneous Endoscopic Approach (ICD-10-PCS; 2022-10-15)
PROC: 5A1221Z Performance of Cardiac Output, Continuous (ICD-10-PCS; 2022-10-15)
PROC: B24BZZ4 Ultrasonography of Heart with Aorta, Transesophageal (ICD-10-PCS; 2022-10-15)
PROC: 5A09357 Assistance with Respiratory Ventilation, Less than 24 Consecutive Hours, Continuous Positive Airway Pressure (ICD-10-PCS; 2022-10-17)
PROC: 5A0935A Assistance with Respiratory Ventilation, Less than 24 Consecutive Hours, High Flow/Velocity Cannula (ICD-10-PCS; 2022-10-17)
DX: I25.10 Atherosclerotic heart disease of native coronary artery without angina pectoris (principal); I21.4 Non-ST elevation (NSTEMI) myocardial infarction; M35.1 Other overlap syndromes; E11.9 Type 2 diabetes mellitus without complications; M32.9 Systemic lupus erythematosus, unspecified; E78.00 Pure hypercholesterolemia, unspecified; R09.02 Hypoxemia; F17.210 Nicotine dependence, cigarettes, uncomplicated; F41.0 Panic disorder [episodic paroxysmal anxiety]; I10 Essential (primary) hypertension; F32.A Depression, unspecified; K21.9 Gastro-esophageal reflux disease without esophagitis; Z79.84 Long term (current) use of oral hypoglycemic drugs; Z82.49 Family history of ischemic heart disease and other diseases of the circulatory system; Z83.3 Family history of diabetes mellitus; Z79.899 Other long term (current) drug therapy
CPT/HCPCS: 93306; 93312; 93325; 93458; 99285; Z7506; Z7508; 36415; 36600; 71045; 71046; 80048; 80053; 80061; 81001; 82330; 82435; 82803; 82947; 82948; 83036; 83735; 83880; 84100; 84132; 84295; 84478; 84484; 85018; 85025; 85347; 85610; 85730; 86885; 86900; 86901; 86920; 87081; 93005; 93880; 93970; 94002; 94003; 94010; 94640; 94664; 94668; 94760; 97116; 97161; 97530; 99152; 99153; A4615; A4618; A6213; A6223; A6258; A6449; A7000; A7015; A7048; A9900; C1725; C1751; C1760; C1894; G0378; J0171; J0690; J1250; J1644; J1815; J1940; J2060; J2150; J2250; J2270; J2405; J2704; J2930; J3010; J3370; J3475; J3480; J3490; J7030; J7040; J7042; J7050; J7120; P9045; P9047; Q9967

== ENCOUNTER 2024-02-29 19:42 | Emergency (ER) | payer OTHER ==
[~2024-02-29] VITALS: Ht 157.5 cm; Wt 78.9 kg
[~2024-02-29 19:42] MED LIST changes: +ALBU6.7H14 IH; +ASPI81TA53 PO; -CARV3.12 PO; -CITA20TA19 PO; +CITA20TA26 PO; +EZET10TA48 PO; +HYDR-3972 PO; +LOP12.5T PO; +LORA-269 PO; -LORA1TAB PO; +METF-1203 PO; -NITR0.4T51 SL; -PANT-47 PO; +PANT40TA54 PO; -RANI-648 PO
[2024-02-29 19:52] VITALS: BP 119/77; PULSE 87; RESP 18; TEMP 98.3; O2SAT 97
[2024-02-29] MEDS ORDERED: CEPH-585 PO (20:08)
== END 2024-02-29 20:30 | disposition home or self-care (01) ==
LOC: ER 19:42
DX: T63.441A Toxic effect of venom of bees, accidental (unintentional), initial encounter (principal); E78.00 Pure hypercholesterolemia, unspecified; I10 Essential (primary) hypertension; K21.9 Gastro-esophageal reflux disease without esophagitis; E11.9 Type 2 diabetes mellitus without complications; F41.9 Anxiety disorder, unspecified; F41.0 Panic disorder [episodic paroxysmal anxiety]; I25.10 Atherosclerotic heart disease of native coronary artery without angina pectoris; Z79.899 Other long term (current) drug therapy; Z79.82 Long term (current) use of aspirin; Z79.84 Long term (current) use of oral hypoglycemic drugs; Y92.89 Other specified places as the place of occurrence of the external cause
CPT/HCPCS: 99283